=== PATIENT | female | born 1950 | race Hispanic/Latino ===

== ENCOUNTER → 2017-12-17 | Outpatient (CLI) | payer MEDICARE ==
[~2017-12-17] MED LIST: ALEN70TA47 PO; AMLO5TAB5 PO; CLON0.2T PO; GABA-529 PO; HYDR1POW19 MC; METF10004 PO; METO100T14 PO; QUIN40TA19 PO; SIMV20TA6 PO; TRAM50TA4 PO
== END | disposition home or self-care (01) ==
LOC: RAH 12:46
PROVIDERS: ATTEND Nurse Practitioner Family
DX: R51 Headache (principal); R42 Dizziness and giddiness
CPT/HCPCS: 70450

== ENCOUNTER → 2018-01-08 | Outpatient (CLI) | payer MEDICARE | END | disposition home or self-care (01) | LOC: RAH 11:38 | PROVIDERS: ATTEND Nurse Practitioner Family | DX: M51.36 Other intervertebral disc degeneration, lumbar region (principal); M25.551 Pain in right hip; M25.552 Pain in left hip | CPT/HCPCS: 72100; 73521 ==

== ENCOUNTER → 2018-03-19 | Outpatient (CLI) | payer MEDICARE | END | disposition home or self-care (01) | LOC: RAH 10:15 | PROVIDERS: ATTEND Nurse Practitioner Family | DX: M19.011 Primary osteoarthritis, right shoulder (principal); M17.11 Unilateral primary osteoarthritis, right knee | CPT/HCPCS: 73030; 73562 ==

== ENCOUNTER → 2020-10-10 | Outpatient (CLI) | payer OTHER ==
[~2020-10-10] MED LIST changes: -ALEN70TA47 PO; +ALEN70TA69 PO; +METF-446 PO; -METF10004 PO; +SIMV-43 PO; -SIMV20TA6 PO
== END | disposition home or self-care (01) ==
LOC: RAH 14:30
PROVIDERS: ATTEND Family Medicine
DX: G31.1 Senile degeneration of brain, not elsewhere classified (principal); I67.82 Cerebral ischemia
CPT/HCPCS: 70450

== ENCOUNTER → 2025-03-07 | Outpatient (CLI) | payer OTHER ==
[~2025-03-07] MED LIST changes: -ALEN70TA69 PO; +ALEN70TA80 PO; +IOHEXOL 350 MG/ML 100ML INFUS..BTL IV ONE; -QUIN40TA19 PO; +QUIN40TA37 PO; +metoPROLOL tartRATE 1 MG/ML 5ML VIAL IV ONE
--- NOTE | 2025-03-07 13:22 | HMCIMG ---
CT OF THE CHEST WITH CONTRAST- CT Cardiac Angio co-interpretation This is done as part of the CT cardiac angiogram study. The interpretation of the coronary arteries will be done by crib attendant in a separate report. History: over-read Comparison: none CT Dose Index (CTDI): 77.90 mGy Dose Length Product (DLP): 493.40 total mGy PROTOCOL: Examination is done at 2.5 millimeter volumetric acquisition after contrast administration with Isovue 370, 100 cc IV, without complications. Photography is done at 5 millimeter thick intervals for the thorax. The examination begins above the heart and therefore the lung apices are incompletely included. The rest of the left lung is included but the right lung is only included up to its middle third. The periphery of the right lung is not included in the study. FINDINGS: The visualized part of the airway is preserved. The bony and soft tissue structures of the chest wall are unremarkable. The aorta is unremarkable. There is a moderate to large hiatal hernia. No mediastinal lymphadenopathy is seen. The lung windows demonstrate no worrisome pulmonary nodules, masses or infiltrates. There is no evidence of pulmonary embolism in the visualized lung segments. The upper abdominal views are unremarkable. Impression: Moderate to large hiatal hernia.
== END | disposition home or self-care (01) ==
LOC: RAH 09:06
PROVIDERS: ATTEND Student in an Organized Health Care Education/Training Program
DX: K44.9 Diaphragmatic hernia without obstruction or gangrene (principal); R07.9 Chest pain, unspecified
CPT/HCPCS: 75574; J3490 ×2; Q9967

== ENCOUNTER → 2025-09-20 | Outpatient (CLI) | payer OTHER ==
[~2025-09-20] MED LIST changes: -AMLO5TAB5 PO; +AMLO5TAB6 PO; +GADOTERATE MEGLUMINE 10 MMOL/20 ML VIAL IV ONE; -IOHEXOL 350 MG/ML 100ML INFUS..BTL IV ONE; -metoPROLOL tartRATE 1 MG/ML 5ML VIAL IV ONE
--- NOTE | 2025-09-20 20:35 | HMCIMG ---
EXAM: MAGNETIC RESONANCE IMAGING OF THE BRAIN AND BRAINSTEM WITH AND WITHOUT INTRAVENOUS CONTRAST Technique: Multiplanar, multisequence magnetic resonance imaging of the brain and brainstem was performed before and after intravenous contrast administration. Contrast: Clariscan 14 mL intravenous gadolinium-based contrast administered. Clinical Information: Headache, unspecified. Comparison: None. Findings: Cerebral parenchyma: Multiple small foci of high T2 and fluid-attenuated inversion recovery signal are present in the periventricular and subcortical deep white matter; these are nonspecific. No diffusion restriction is identified to suggest acute infarction. No intraparenchymal hemorrhage, mass, or mass effect. Extra-axial spaces: Normal in size and morphology for age. No extra-axial fluid collection. Ventricular system and basal cisterns: Ventricles are normal in size and configuration for age. Basal cisterns are patent. Posterior fossa and brainstem: Brainstem and cerebellum are unremarkable. No lesion at the cerebellopontine angles. Post-contrast imaging: No pathologic parenchymal or leptomeningeal enhancement is demonstrated. Vascular system: Expected arterial and dural venous sinus flow voids. Orbits and paranasal sinuses: No intraorbital abnormality. Paranasal sinuses are clear. Calvarium and skull base: No focal marrow-replacing lesion identified. Mastoid air cells: No effusion.IMPRESSION: 1. No acute intracranial abnormality (no acute infarct, hemorrhage, mass effect, or abnormal enhancement). 2. Nonspecific small foci of white matter hyperintensity in the periventricular and subcortical regions; differential considerations include chronic microvascular ischemic change, migraine-related change, prior inflammatory or demyelinating processes, and other nonspecific etiologies in the appropriate clinical context. [facility]
== END | disposition home or self-care (01) ==
LOC: RAH 14:50
PROVIDERS: ATTEND Family Medicine
DX: S09.90XA Unspecified injury of head, initial encounter (principal); I67.82 Cerebral ischemia; R51.9 Headache, unspecified; X58.XXXA Exposure to other specified factors, initial encounter; Y93.89 Activity, other specified; Y92.89 Other specified places as the place of occurrence of the external cause; Y99.8 Other external cause status
CPT/HCPCS: 70553; A9575